=== PATIENT | female | born 1970 | race Caucasian/White ===

== ENCOUNTER 2024-04-16 19:13 | Outpatient (CLI) | payer BC, SELFPAY | END 2024-04-16 19:14 | disposition home or self-care (01) | LOC: NFLDREF 04-17 05:10 | PROVIDERS: PCP Physician Assistant Medical; Referring Provider Physician Assistant Medical; Visit Provider Nurse Practitioner Family | DX: R30.0 Dysuria (principal); R82.90 Unspecified abnormal findings in urine | CPT/HCPCS: 87086 ==